=== PATIENT | male | born 1950 | race Caucasian/White ===

== ENCOUNTER 2017-03-31 11:41 | Emergency (ER) | payer OTHER ==
--- NOTE | 2017-03-31 11:44 | ED GENERAL ADULT ---
History of Present Illness General Chief Complaint: ETOH/Drug Related Complaint Stated Complaint: BIBA FOR ETOH Source: EMS Exam Limitations: clinical condition, poor historian, intoxication, physical impairment Vital Signs & Intake/Output Vital Signs & Intake/Output Vital Signs Date Time Temp Pulse Resp B/P B/P Pulse O2 O2 Flow FiO2 Mean Ox Delivery Rate 04/01 0505 96.8 78 18 160/82 06/ 0505 96.8 78 18 160/82 99 Nasal 2.0L Cannula 04/01 0342 96.9 72 18 158/84 06 0342 96.9 72 18 158/84 98 Nasal 2.0L Cannula 04/01 0118 96.8 77 18 160/88 06/ 0117 97.6 77 18 160/88 99 Nasal 2.0L Cannula 03/31 2252 98.9 76 18 183/89 97 Room Air 06 2251 97.1 76 18 183/89 / 2205 97.4 89 19 159/77 98 Nasal 2.0L Cannula 03/31 2113 97.2 69 17 141/79 06/08 2113 97.2 69 17 141/79 96 Nasal 2.0L Cannula 03/31 2011 97.5 68 18 164/91 95 Nasal 2.0L Cannula 03/31 2010 97.5 68 18 164/91 06/08 1859 97.1 68 18 124/67 06/08 1859 97.1 68 18 124/67 94 Room Air 06/08 1730 97.0 76 18 139/81 06/08 1730 98.0 76 18 139/81 96 Room Air 06/08 1546 97.4 84 18 127/79 96 Room Air 06/08 1544 97.1 84 18 127/79 06/08 1414 67 16 125/68 95 Nasal 2.0L Cannula 08 1403 68 16 130/71 97 Nasal 3.0L Cannula 08 1234 97 Nasal 3.0L Cannula 08 1157 97.9 70 16 139/81 97 Nasal 2.0L Cannula ED Intake and Output 04/01 0000 0608 1200 Intake Total 1000 Output Total 350 Balance 650 Intake, IV 1000 Output, Urine 350 Allergies Coded Allergies: NO KNOWN ALLERGIES (09/20/11) Triage Nurses Notes Reviewed? yes Onset: Abrupt Duration: unknown duration Timing: unknown HPI: 03/31/17 12:30 pm 66-year-old man is brought in by ambulance for being found unresponsive. According to his he has been drinking heavily. She found him inside the car with the car door open in the garage. There is no history of trauma. The patient responds to painful stimuli. The onset of the symptoms of been abrupt, the duration is unknown, the severity is significant; as his symptoms required him to come to the emergency department for care. He has a history of alcohol abuse. (IMMANUEL CURIEL DO) Past History Travel History Traveled to [place] past 21 day No Medical History Any Pertinent Medical History? see below for history Pneumonia Vaccine: 08/09/13 Surgical History Surgical History: [place] Psychosocial History What is your primary language Mosotho Family History Hx Contributory? No (IMMANUEL CURIEL DO) Review of Systems Review of Systems Constitutional: Reports: no symptoms. EENTM: Reports: no symptoms. Respiratory: Reports: no symptoms. Cardiovascular: Reports: no symptoms. GI: Reports: no symptoms. Genitourinary: Reports: no symptoms. Musculoskeletal: Reports: no symptoms. Skin: Reports: no symptoms. Neurological/Psychological: Reports: confusion. Hematologic/Endocrine: Reports: no symptoms. Immunologic/Allergic: Reports: no symptoms. (IMMANUEL CURIEL DO) Physical Exam Physical Exam General Appearance: intoxicated Head: atraumatic Eyes: Bilateral: normal appearance, PERRL, EOMI. Ears, Nose, Throat: normal ENT inspection Neck: supple Respiratory: normal breath sounds, chest non-tender, no respiratory distress Cardiovascular: regular rate/rhythm Peripheral Pulses: 4+ radial (R), 4+ radial (L) Gastrointestinal: non-tender Back: decreased range of motion Extremities: no edema Neurologic/Psych: patient response to painful stimuli Skin: intact, normal color, warm/dry Core Measures ACS in differential dx? No CVA/TIA Diagnosis: No Severe Sepsis Present: No Septic Shock Present: No (IMMANUEL CURIEL DO) Progress Differential Diagnoses I considered the following diagnoses in my evaluation of the patient: Alcohol intoxication and head trauma, CVA, carbon monoxide poisoning Plan of Care: Orders Procedure Date/time Status ARTERIAL BLOOD GAS (GEN) 03/31 1320 Active Add-on Test (ER Only) 03/31 1241 Active EKG 03/31 1223 Active Add-on Test (ER Only) 03/31 1222 Active ACETOMINOPHEN 03/31 1215 Complete TROPONIN LEVEL 03/31 121 Complete SALICYLATE 03/31 121 Complete ETHANOL 03/31 121 Complete URINE DRUG SCREEN FOR ER ONLY 03/31 1207 Complete URINALYSIS 03/31 1207 Complete COMPREHENSIVE METABOLIC PANEL 03/31 1207 Complete CBC WITHOUT DIFFERENTIAL 03/31 1207 Complete Laboratory Tests 03/31/17 1340: pH 7.35, pCO2 50 H, pO2 108 H, HCO3 27, ABG O2 Sat (Measured) 96.0, Carboxyhemoglobin 0.5 L, O2 Concentration % 3.5L, O2 Delivery Method NC, Phlebotomy Draw Site LEFT RADIAL 03/31/17 121: Anion Gap 17 H, Estimated GFR > 60, BUN/Creatinine Ratio 13.6, Glucose 93, Calcium 9.5, Total Bilirubin 0.6, AST 90 H, ALT 47, Alkaline Phosphatase 44, Troponin I < 0.01, Total Protein 7.7, Albumin 4.4, Globulin 3.3, Albumin/ Globulin Ratio 1.3, CBC w Diff NO MAN DIFF REQ, RBC 4.11 L, MCV 95.9 H, MCH 32.7 H, RDW 14.5, MPV 7.2 L, Gran % 50.4, Lymphocytes % 35.6, Monocytes % 9.9 H, Eosinophils % 2.9, Basophils % 1.2, Absolute Granulocytes 2.6, Absolute Lymphocytes 1.8, Absolute Monocytes 0.5, Absolute Eosinophils 0.1, Absolute Basophils 0.1, PUBS MCHC 34.1, Salicylates < 1.0, Acetaminophen < 10.0 L, Serum Alcohol 444.0 03/31/17 120: Urine Opiates Screen < 100.00, Methadone Screen 62, Barbiturate Screen < 60, Ur Phencyclidine Scrn < 6.00, Amphetamines Screen < 100, U Benzodiazepines Scrn < 85, Urine Cocaine Screen < 50, Urine Cannabis Screen < 5.00, Urine Color YEL, Urine Clarity CLEAR, Urine pH 6.0, Ur Specific [place] 1.010, Urine Protein NEG, Urine Ketones NEG, Urine Nitrite NEG, Urine Bilirubin NEG, Urine Urobilinogen 0.2, Ur Leukocyte Esterase NEG, Ur Microscopic EXAM NOT REQUIRED, Urine Hemoglobin NEG, Urine Glucose NEG Initial ED EKG: NSR Prior EKG: unchanged (IMMANUEL CURIEL DO) Departure Departure Condition: Stable Referrals: SHANDRA YOUNG,NIKKIE Magallon (PCP/Family) Comments 03/31/17 7 pm Patient was signed out to Dr Saeed. His alcohol level was 440. CT scan of the head was negative. Labs otherwise unremarkable. The patient will be reevaluated once sober. (IMMANUEL CURIEL DO) Departure Time of Disposition: 623 Disposition: HOME OR SELF CARE Clinical Impression Primary Impression: Altered mental status Qualifiers: Altered mental status type: stupor Qualified Code: R40.1 - Stupor Secondary Impressions: Alcohol intoxication delirium Departure Forms: General Discharge Information (RAVEN YOUNG,KORY) Critical Care Note Critical Care Note Critical Care Time: 30-74 min (IMMANUEL CURIEL DO)
[2017-03-31 12:35] LABS: ABSOLUTE BASOPHIL COUNT 0.1 /CUMM (0.0-0.2); ABSOLUTE EOSINOPHIL COUNT 0.1 /CUMM (0.0-0.7); ABSOLUTE GRANULOCYTE CT 2.6 /CUMM (1.4-6.5); ABSOLUTE LYMPH COUNT 1.8 /CUMM (1.2-3.4); ABSOLUTE MONOCYTE COUNT 0.5 /CUMM (0.10-0.60); BASOPHIL % 1.2 % (0.0-2.0); EOSINOPHIL % 2.9 % (0-5); GRANULOCYTE % 50.4 % (42.2-75.2); HEMATOCRIT 39.4 % (42-52); MEAN CORPUSCULAR HGB 32.7 PG (27.0-31.0); MEAN CORPUSCULAR HGB CONC 34.1 G/DL (33.0-37.0); MEAN CORPUSCULAR VOLUME 95.9 FL (80.0-94.0); MEAN PLATELET VOLUME 7.2 FL (7.4-10.4); PLATELET COUNT 123 /CUMM (130-400); RBC DISTRIBUTION WIDTH 14.5 % (11.5-14.5); RED BLOOD CELL CT 4.11 /CUMM (4.70-6.10); WHITE BLOOD CELL COUNT 5.2 /CUMM (4.8-10.8)
--- NOTE | 2017-03-31 13:29 | CT SCAN REPORT ---
EXAMINATION: CT HEAD WITHOUT CONTRAST CLINICAL INFORMATION: Altered mental syndrome. COMPARISON: CT brain 12/05/2011. TECHNIQUE: Contiguous axial imaging was performed from the skull base to vertex without intravenous administration of contrast. DLP: 623 mGy-cm FINDINGS: There is no evidence of acute intracranial hemorrhage or territorial infarction. No abnormal mass effect or midline shift is seen. Meraz to white matter differentiation is well preserved. No extra-axial fluid collections are identified. The lateral ventricles are slightly enlarged with mild prominence of cortical sulci There is no abnormal attenuation within the brain parenchyma. The osseous structures and soft tissues are normal. The mastoid air cells and visualized portions of the paranasal sinuses are well aerated. IMPRESSION: No acute intracranial process seen.
[2017-04-01 06:29] VITALS: BP 168/96
== END 2017-04-01 06:49 ==
LOC: ERH 11:41
PROVIDERS: Emergency Medicine
DX: R41.82 Altered mental status, unspecified (principal); F10.921 Alcohol use, unspecified with intoxication delirium
CPT/HCPCS: 80307; 81003; 93005; 93010; G0480; J2550

== ENCOUNTER 2018-07-04 17:31 | Emergency (ER) | payer OTHER, MEDICARE ==
[~2018-07-04] VITALS: Ht 177.8 cm; Wt 90.7 kg
[~2018-07-04 17:31] MED LIST: ATIVAN1 M1 PO; LISINOPRIL10 M1 PO; PERCOCET 10-321 EACH PO
--- NOTE | 2018-07-04 17:37 | ED GENERAL ADULT ---
History of Present Illness General Chief Complaint: Nausea, Vomiting, Diarrhea Stated Complaint: BIBA NVD Source: patient Exam Limitations: no limitations Vital Signs & Intake/Output Vital Signs & Intake/Output Vital Signs Date Time Temp Pulse Resp B/P B/P Pulse O2 O2 Flow FiO2 Mean Ox Delivery Rate 07/04 2029 67 18 144/96 99 Room Air 07/04 1832 99.1 78 18 154/95 07/04 1735 99.1 78 18 154/95 97 Room Air ED Intake and Output 07/05 0000 07/04 1200 Intake Total Output Total Balance Patient 200 lb Weight Allergies Coded Allergies: NO KNOWN ALLERGIES (09/20/11) Reconcile Medications Chlordiazepoxide HCl 25 MG CAPSULE 1 CAP PO TID PRN ALCOHOL WITHDRAWAL 1 TABLET 3 x for 1 DAY THEN 1 TABLET 2x A DAY FOR 1 DAY THEN 1 TABLET DAILY FOR 1 DAY Lisinopril 10 MG TABLET 10 MG PO DAILY HTN (Reported) LORazepam (Ativan) 1 MG TAB 1 TAB PO BID PRN ALCOHOL WITHDRAWAL 1 TAB TWICE DAILY FOR 2 DAYS THEN 1 TAB TWICE DAILY FOR 2 DAYS Triage Nurses Notes Reviewed? yes HPI: Pt is a 67 y/o M PMHx HTN, ETOH abuse presenting with N/V x 1 day. Pt states he woke up this morning feeling nauseous and has been throwing up throughout the day. Pt admits to a diffuse abdominal pain that has been constant since throwing up. Pt states his last drink was two days ago, and he recently joined [employer]. Pt denies ever having any symptoms of withdrawl, any history of seizures, or any history of surgeries. Pt denies any fevers, chills, diaphoresis , cp, palpitations, SOB, hematemesis, hematochezia, melena, hematuria, dysuria, oliguria, change in medications, recent travel, change in diet. (Juan Carlos Benson MD) Past History Travel History Traveled to [place] past 21 day No Medical History Any Pertinent Medical History? see below for history Neurological: NONE EENT: NONE Cardiovascular: hypertension Respiratory: PNEUMOTHORAX Gastrointestinal: NONE Hepatic: NONE Renal: NONE Musculoskeletal: MULTIPLE RIB FRACTURES Psychiatric: ETOH, DEPRESSION Endocrine: NONE Blood Disorders: POLYCYTHEMIA Surgical History Surgical History: non-contributory, [place] Psychosocial History What is your primary language [place]ese Family History Hx Contributory? No (Juan Carlos Benson MD) Review of Systems Review of Systems Constitutional: Denies: see HPI. Respiratory: Denies: see HPI. Cardiovascular: Denies: see HPI. GI: Reports: see HPI. Genitourinary: Denies: see HPI. All Other Systems: Reviewed and Negative (Juan Carlos Benson MD) Physical Exam Physical Exam General Appearance: well developed/nourished, alert, awake, anxious Head: atraumatic, normal appearance Eyes: Bilateral: normal appearance, PERRL, EOMI. Neck: normal inspection, supple Respiratory: normal breath sounds, no respiratory distress, lungs clear Cardiovascular: regular rate/rhythm, NMRG Peripheral Pulses: 2+ radial (R), 2+ radial (L) Gastrointestinal: normal bowel sounds, soft, non-tender, no organomegaly, Earnestine's sign negative, Psoas sign negative Neurologic/Psych: awake, alert, oriented x 3, sanitary engineer II-XII nml as tested, Mild resting tremor noted Skin: intact, normal color, diaphoresis Core Measures ACS in differential dx? Yes CVA/TIA Diagnosis: No Sepsis Present: No Sepsis Focused Exam Completed? Yes (Juan Carlos Benson MD) Progress Differential Diagnoses I considered the following diagnoses in my evaluation of the patient: [ACS, ETOH withdrawl, pancreatitis, cholecystitis, appendicitis, gastritis] Plan of Care: Orders Procedure Date/time Status TROPONIN LEVEL 07/04 175 Complete LIPASE 07/04 175 Complete ETHANOL 07/04 175 Complete COMPREHENSIVE METABOLIC PANEL 07/04 1752 Complete CBC WITHOUT DIFFERENTIAL 07/04 1752 Complete EKG 07/04 174 Active Laboratory Tests 07/04/18 1755: Anion Gap 14, Estimated GFR > 60, BUN/Creatinine Ratio 13.3, Glucose 118 H, Calcium 9.4, Total Bilirubin 1.0, AST 63 H, ALT 42, Alkaline Phosphatase 57, Troponin I < 0.01, Total Protein 7.6, Albumin 4.3, Globulin 3.3, Albumin/ Globulin Ratio 1.3, Lipase 320 H, CBC w Diff MAN DIFF ORDERED, RBC 4.54 L, MCV 94.8 H, MCH 33.4 H, MCHC 35.2, RDW 14.4, MPV 7.7, Gran % 86.1 H, Lymphocytes % 5.8 L, Monocytes % 8.0, Eosinophils % 0, Basophils % 0.1, Absolute Granulocytes 10.8 H, Segmented Neutrophils 82 H, Band Neutrophils 4, Absolute Lymphocytes 0.7 L, Lymphocytes 7 L, Monocytes 7, Absolute Monocytes 1.0 H, Absolute Eosinophils 0, Absolute Basophils 0, Platelet Estimate ADEQUATE, Macrocytic Cells 1+, Serum Alcohol < 10.0 Clinically suspect EtOH at this patient based on exam, history, and presentation. Plan for symptom control with Ativan, Zofran, IV fluids. Plan also for CT abdomen pelvis. Initial labs significant for negative alcohol, mild leukocytosis. Mild lipase elevation likely secondary to vomiting. Less likely pancreatitis given exam. CT is nonacute. Patient is made aware of nonacute findings. He is advised follow-up with primary doctor. On reassessment following Ativan, patient much improved. Given this, likely alcohol withdrawal. Will discharge patient home for Librium taper, plan follow-up with outpatient provider. Return precautions provided. Initial ED EKG: none (Juan Carlos Benson MD) Departure Departure Time of Disposition: 2133 Disposition: HOME OR SELF CARE Condition: Stable Clinical Impression Primary Impression: Alcohol withdrawal Referrals: Patient Has No Primary Care Dr (PCP/Family) Departure Forms: Customer Survey General Discharge Information Prescriptions: Current Visit Scripts Chlordiazepoxide HCl 1 CAP PO TID PRN ALCOHOL WITHDRAWAL #6 CAP 1 TABLET 3 x for 1 DAY THEN 1 TABLET 2x A DAY FOR 1 DAY THEN 1 TABLET DAILY FOR 1 DAY (Juan Carlos Benson MD) PA/MACHINE FEATHEREDGER AND REDUCER Co-Sign Statement Statement: ED Attending supervision documentation- I saw and evaluated the patient. I have also reviewed all the pertinent lab results and diagnostic results. I agree with the findings and the plan of care as documented in the PA's/MACHINE FEATHEREDGER AND REDUCER's documentation. X I have reviewed the ED Record and agree with the PA's/MACHINE FEATHEREDGER AND REDUCER's documentation. [] Additions or exceptions (if any) to the PAs/MACHINE FEATHEREDGER AND REDUCER's note and plan are summarized below: [] (Jim YOUNG,Nomi) Critical Care Note Critical Care Note Critical Care Time: non-applicable (Juan Carlos Benson MD)
[2018-07-04 18:01] LABS: ABSOLUTE BASOPHIL COUNT 0 /CUMM (0.0-0.2); ABSOLUTE EOSINOPHIL COUNT 0 /CUMM (0.0-0.7); ABSOLUTE GRANULOCYTE CT 10.8 /CUMM (1.4-6.5); ABSOLUTE LYMPH COUNT 0.7 /CUMM (1.2-3.4); BASOPHIL % 0.1 % (0.0-2.0); EOSINOPHIL % 0 % (0-5); GRANULOCYTE % 86.1 % (42.2-75.2); HEMATOCRIT 43.1 % (42-52); MEAN CORPUSCULAR HGB 33.4 PG (27.0-31.0); MEAN CORPUSCULAR HGB CONC 35.2 G/DL (33.0-37.0); MEAN CORPUSCULAR VOLUME 94.8 FL (80.0-94.0); MEAN PLATELET VOLUME 7.7 FL (7.4-10.4); PLATELET COUNT 319 /CUMM (130-400); RBC DISTRIBUTION WIDTH 14.4 % (11.5-14.5); RED BLOOD CELL CT 4.54 /CUMM (4.70-6.10); WHITE BLOOD CELL COUNT 12.5 /CUMM (4.8-10.8)
--- NOTE | 2018-07-04 20:05 | CT SCAN REPORT ---
EXAMINATION: CT ABDOMEN AND PELVIS WITH CONTRAST CLINICAL INFORMATION: Abdominal pain, nausea, vomiting. COMPARISON: None. TECHNIQUE: Contiguous axial thin section helical images of the abdomen and pelvis were performed following the administration of 95 mL of intravenous Optiray 320. The data set was reformatted in the coronal and sagittal planes and reviewed on an independent workstation. DLP: 531 mGy-cm. FINDINGS: There is mild scarring within the lateral lingula and left lower lobe. The visualized lung bases are otherwise clear. The visualized portions of the heart are unremarkable. There is a small hiatal hernia. The liver is of normal size and mild diffuse decreased attenuation without focal lesions nor intrahepatic biliary ductal dilation. A normal gallbladder is identified. There is no wall thickening or discernible pericholecystic fluid. The spleen, pancreas, adrenal glands are unremarkable. Both kidneys are of normal size and attenuation without hydronephrosis or nephrolithiasis. Following the administration of IV contrast, prompt symmetric nephrograms are displayed. There is no abdominal free fluid. There is neither mesenteric nor retroperitoneal lymphadenopathy. There is sigmoid diverticulosis without evidence of diverticulitis; otherwise, unremarkable unopacified loops of small and large bowel are identified. In normal appendix is present. There is no pelvic free fluid. The urinary bladder is unremarkable. There is neither pelvic nor inguinal lymphadenopathy. Bone windows: Neither sclerotic nor lytic bone lesions are identified. There are healed lateral left eighth and ninth rib fractures. IMPRESSION: Sigmoid diverticulosis without evidence of diverticulitis. No evidence for acute abdominal or pelvic inflammatory or infectious processes. Mild manifestations of hepatic steatosis. Multilevel hernia.
[2018-07-04 20:29] VITALS: BP 144/96
[2018-07-04] MEDS ORDERED: CHLORDIAZEPOXID25 M3 PO (21:39)
== END 2018-07-04 21:44 ==
LOC: ERH 17:31
PROVIDERS: Student in an Organized Health Care Education/Training Program
DX: F10.239 Alcohol dependence with withdrawal, unspecified (principal); I10 Essential (primary) hypertension; F32.9 Major depressive disorder, single episode, unspecified; D75.1 Secondary polycythemia
CPT/HCPCS: 74177; 93005; 93010; 96374; 96375; G0480; J2405; J3360